=== PATIENT | male | born 1950 | race Caucasian/White ===

== ENCOUNTER 2018-01-08 05:48 | Emergency (ER) | payer OTHER ==
[~2018-01-08] VITALS: Ht 180.3 cm; Wt 113.4 kg
[~2018-01-08 05:48] MED LIST: AMARYL4 MG PO; ASPIRIN81 M2 PO; BENTYL 10 MG CA10 MG; BENTYL20 MG PO; CARDIZEM CD120 MG PO; CEFTIN500 MG PO; CIPROFLOXACIN500 M1 PO; CLEOCIN HCL150 MG PO; DEMEROL50 MG PO; FLAGYL500 MG PO; IMODIUM A-D1 MG/5 ML PO; METFORMIN HCL500 MG PO; NEXIUM40 MG PO; NICOTINE TRANSD14 M1; NORCO 5-325 TA1 EACH PO; OMEPRAZOLE; OMEPRAZOLE40 MG PO; POTASSIUM CITR15 MEQ PO; PRILOSEC40 MG PO; QUESTRAN PACKET4 GM; REQUIP 0.25 M0.25 MG PO; TESTOSTERONE; TORADOL 10 MG T10 MG PO; TRAMADOL 50 MG50 MG PO; ZOFRAN ODT4 M1 PO; ZOFRAN ODT4 MG PO; ZOMIG; ZPAK PO; [UNRECOGNIZED DRUG - OTHER]; [UNRECOGNIZED DRUG - OTHER]; [UNRECOGNIZED DRUG - OTHER] PO
[2018-01-08] MEDS ORDERED: LOPRESSOR50 (05:57)
[2018-01-08] MEDS ORDERED: LYRICA 75 MG CA75 MG (05:58)
[2018-01-08] MEDS ORDERED: KEFLEX500 M1 PO ×2 (06:20→06:39)
[2018-01-08] MEDS ORDERED: CENTANY30 GM TOP ×2 (06:20→06:39)
[2018-01-08] MEDS ORDERED: DIFLUCAN150 MG PO (06:21)
[2018-01-08 06:47] VITALS: BP 208/81
== END 2018-01-08 06:47 | disposition home or self-care (01) ==
LOC: M.ERS 05:48
DX: L30.9 Dermatitis, unspecified (principal); K21.9 Gastro-esophageal reflux disease without esophagitis; I10 Essential (primary) hypertension; Z88.5 Allergy status to narcotic agent; Z88.8 Allergy status to other drugs, medicaments and biological substances; Z87.891 Personal history of nicotine dependence

== ENCOUNTER → 2018-10-21 | Outpatient (CLI) | payer OTHER ==
[~2018-10-21] MED LIST changes: +CENTANY30 GM TOP; +DIFLUCAN150 MG PO; +KEFLEX500 M1 PO; +LOPRESSOR50; +LYRICA 75 MG CA75 MG
--- NOTE | 2018-10-21 18:26 | 2DMMODE ---
[place] [address] 2 D/M-MODE ECHOCARDIOGRAM Name: ROBERTO HUERTA Room: [facility]#: [id number] Admission: 10/21/18 Attend Phys: Tyree Valdes MD Discharge: Date of : 54 Date of Service: 10/21/18 1826 Report #: [id number] THIS REPORT FOR: //name// APPROVED REPORT Study performed: 10/21/2018 15:34:44 EXAM: Comprehensive 2D, Doppler, and color-flow Echocardiogram Patient Location: Out-Patient Status: routine BSA: 2.34 HR: 72 bpm BP: 130/60 mmHg Other Information Study Quality: Fair Indications Atrial Fibrillation 2D Dimensions IVSd: 11.06 (7-11mm) LVOT Diam: 20.11 (18-24mm) LVDd: 43.81 mm PWd: 11.92 (7-11mm) Ascending Ao: 28.91 (22-36mm) LVDs: 29.82 (25-40mm) Aortic Root: 30.52 mm Volumes Left Atrial Volume (Systole) LA ESV Index: 26.10 mL/m2 Aortic Valve AoV Peak Eamon.: 1.17 m/s AO Peak Gr.: 5.45 mmHg LVOT Max P.18 mmHg AO Mean Gr.: 2.89 mmHg LVOT Mean P.05 mmHg LVOT Max V: 1.02 m/s AO V2 VTI: 21.69 cm LVOT Mean V: 0.65 m/s ANNELIESE (VTI): 3.04 cm2 LVOT V1 VTI: 20.75 cm Mitral Valve E/A Ratio: 2.52 MV Decel. Time: 176.12 ms MV E Max Emaon.: 0.83 m/s MV PHT: 51.07 [place] [address] 2 D/M-MODE ECHOCARDIOGRAM Name: ROBERTO HUERTA Room: [facility]#: [id number] Admission: 10/21/18 Attend Phys: Tyree Valdes MD Discharge: Date of : 54 Date of Service: 10/21/18 1826 Report #: [id number] MVA (PHT): 4.31 cm2 TDI E/Lateral E': 6.38 E/Medial E': 9.22 Medial E' Eamon.: 0.09 m/s Lateral E' Eamon.: 0.13 m/s Pulmonary Valve PV Peak Eamon.: 1.01 m/s PV Peak Gr.: 4.09 mmHg Tricuspid Valve RAP Estimate: 5.00 mmHg TR Peak Gr.: 27.41 mmHg RVSP: 32.41 mmHg PA Pressure: 32.41 mmHg Left Ventricle The left ventricle is normal size. There is normal LV segmental wall motion. Mild concentric left ventricular hypertrophy. Left ventricular systolic function is normal. The left ventricular ejection fraction is within the normal range. LVEF is 50-55%. Grade III - reversible restrictive diastolic dysfunction. Right Ventricle The right ventricle is normal size. The right ventricular systolic function is normal. Atria Left atrium is borderline dilated. The right atrium size is normal. Aortic Valve The aortic valve is normal in structure. No aortic regurgitation is present. There is no aortic valvular stenosis. Mitral Valve The mitral valve is normal in structure. Mild mitral regurgitation. No evidence of mitral valve stenosis. Tricuspid Valve The tricuspid valve is normal in structure. Mild tricuspid regurgitation. Pulmonic Valve The pulmonary valve is normal in structure. There is no pulmonic [place] [address] 2 D/M-MODE ECHOCARDIOGRAM Name: ROBERTO HUERTA Room: [facility]#: [id number] Admission: 10/21/18 Attend Phys: Tyree Valdes MD Discharge: Date of : 54 Date of Service: 10/21/18 1826 Report #: [id number] Great Vessels The aortic root is normal in size. IVC is normal in size and collapses >50% with inspiration. Pericardium There is no pericardial effusion. <Conclusion> LVEF is 50-55%. There is normal LV segmental wall motion. Mild concentric left ventricular hypertrophy. Grade III - reversible restrictive diastolic dysfunction. Left atrium is borderline dilated. Mild mitral regurgitation. There is no aortic valvular stenosis. No aortic regurgitation is present. Mild tricuspid regurgitation. <ELECTRONICALLY SIGNED> By: Richar Matos MD, FACC 10/21/181825 25 25 Richar Matos MD, FACC /INF
== END ==
LOC: M.CRD 10-15 10:00
DX: I08.1 Rheumatic disorders of both mitral and tricuspid valves (principal); I48.91 Unspecified atrial fibrillation

== ENCOUNTER 2019-02-02 21:38 | Emergency (ER) | payer OTHER ==
[~2019-02-02] VITALS: Ht 180.3 cm; Wt 114.8 kg
[2019-02-02 22:21] LABS: ABSOLUTE BASOPHILS 0.1 thou/uL (0.0-0.2); ABSOLUTE EOSINOPHILS 0.2 thou/uL (0.0-0.7); ABSOLUTE LYMPHOCYTES 1.6 thou/uL (0.8-5.3); ABSOLUTE NEUTROPHILS 7.4 thou/uL (1.6-8.1); BASOPHILS 1.3 %; EOSINOPHILS 2.1 %; HEMATOCRIT 47.8 % (42.0-52.0); LYMPHOCYTES 15.4 %; MCH 33.8 pg (26.0-34.0); MCHC 33.5 g/dL (28.0-37.0); MCV 100.8 fL (80.0-100.0); MONOCYTES 9.6 %; MPV 8.8 fl. (7.2-11.1); NUCLEATED RBCS 0 /100WBC; PLATELET COUNT* 211 thou/uL (150-400); POLYS 71.6 %; RBC 4.75 mil/uL (4.50-6.00); RDW-CV 15.5 % (10.5-14.5); WBC 10.4 thou/uL (4.0-11.0)
[2019-02-02 22:30] LABS: PROTIME 10.6 Seconds (9.20-11.50)
[2019-02-02 22:41] LABS: ALBUMIN 3.2 g/dL (3.4-5.0); ALKALINE PHOSPHATASE 109 U/L (46-116); ANION GAP 7 mmol/L (7-16); BUN 18 mg/dL (7-18); CALCIUM 8.8 mg/dL (8.5-10.1); CHLORIDE 101 mmol/L (98-107); CO2 29 mmol/L (21-32); CREATININE 0.9 mg/dL (0.6-1.3); GLUCOSE 117 mg/dL (70-99); NT-PRO BRAIN NAT PEPTIDE 1008 pg/mL (<300); POTASSIUM 4.7 mmol/L (3.5-5.1); SGOT 18 U/L (15-37); SGPT 27 U/L (30-65); SODIUM 137 mmol/L (136-145); TOTAL BILIRUBIN 0.4 mg/dL (<0.1-1.0); TOTAL PROTEIN 7.2 g/dL (6.4-8.2); TROPONIN-I LEVEL <0.06 ng/mL (<0.06)
[2019-02-02 23:43] VITALS: BP 123/58
--- NOTE | 2019-02-04 10:02 | EKG ---
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: Karri MCCLOUD : 1950 Requested By: Ivana Jones Order Number: [id number] MD: Richar Matos Measurements Intervals [place] Rate: 101 P: VA: QRS: 93 QRSD: 101 T: 44 QT: 352 QTc: 457 Interpretive Statements Atrial fibrillation Right axis deviation Baseline wander in lead(s) II,aVF Compared to ECG 09/30/2017 07:24:03 Sinus rhythm no longer present Electronically Signed On 02-04-2019 10:02:17 CDT by Richar Matos [email or web address] <ELECTRONICALLY SIGNED> By: Richar Matos MD, FACC 02/04/19 1002 07 07 Richar Matos MD, [facility] /EPI
== END 2019-02-02 23:43 | disposition home or self-care (01) ==
LOC: M.ERS 21:38
PROVIDERS: Emergency Medicine
DX: S00.83XA Contusion of other part of head, initial encounter (principal); G43.909 Migraine, unspecified, not intractable, without status migrainosus; K21.9 Gastro-esophageal reflux disease without esophagitis; I10 Essential (primary) hypertension; I48.91 Unspecified atrial fibrillation; Z87.891 Personal history of nicotine dependence; Z88.5 Allergy status to narcotic agent; Z88.8 Allergy status to other drugs, medicaments and biological substances; W10.9XXA Fall (on) (from) unspecified stairs and steps, initial encounter; Y93.89 Activity, other specified; Y92.89 Other specified places as the place of occurrence of the external cause; Y99.8 Other external cause status

== ENCOUNTER 2019-06-04 13:04 | Inpatient (IN) | payer OTHER ==
[~2019-06-04] VITALS: Ht 180.3 cm; Wt 127.2 kg
[~2019-06-04 13:04] MED LIST changes: +DILTIAZEM HCL90 MG PO; +IPRAT-ALBUT 0.5-3 ML INH; +IPRATROPIUM BRO15 ML NASAL; +LEVAQUIN 500 M500 M1 PO; -LOPRESSOR50; +LOPRESSOR50 PO; -LYRICA 75 MG CA75 MG; +LYRICA 75 MG CA75 MG PO; +NEBULIZER MISCELL; +PREDNISONE50 MG PO; +VENTOLIN HFA 1818 GM INH
[2019-06-04 13:13] VITALS: BP 156/98
[2019-06-04 14:01] LABS: HEMATOCRIT 48.4 % (42.0-52.0); HEMOGLOBIN 16.3 gm/dL (14.0-18.0); MCH 35.3 pg (26.0-34.0); MCHC 33.6 g/dL (28.0-37.0); MPV 8.4 fl. (7.2-11.1); NUCLEATED RBCS 0 /100WBC; PLATELET COUNT* 264 thou/uL (150-400); RBC 4.61 mil/uL (4.50-6.00); RDW-CV 15.9 % (10.5-14.5); WBC 13.7 thou/uL (4.0-11.0)
[2019-06-04 14:05] LABS: URINE BILIRUBIN NEGATIVE (Negative); URINE BLOOD TRACE (Negative); URINE CLARITY CLEAR; URINE COLOR YELLOW; URINE GLUCOSE-RANDOM NEGATIVE (Negative); URINE KETONES TRACE (Negative); URINE LEUKOCYTES-REFLEX NEGATIVE (Negative); URINE NITRITE-REFLEX NEGATIVE (Negative); URINE PROTEIN TRACE (Negative)
[2019-06-04 14:10] LABS: ANION GAP 9 mmol/L (7-16); BUN 19 mg/dL (7-18); CHLORIDE 99 mmol/L (98-107); CO2 30 mmol/L (21-32); GLUCOSE 195 mg/dL (70-99); POTASSIUM 4.5 mmol/L (3.5-5.1); SODIUM 138 mmol/L (136-145)
[2019-06-04 14:18] LABS: ABSOLUTE MONOCYTES 0.4 thou/uL (0.0-1.2); ABSOLUTE NEUTROPHILS 12.3 thou/uL (1.6-8.1); PLATELET ESTIMATE ADEQUATE
[2019-06-04 14:22] LABS: ALBUMIN 3.4 g/dL (3.4-5.0); ALKALINE PHOSPHATASE 94 U/L (46-116); NT-PRO BRAIN NAT PEPTIDE 1180 pg/mL (<300); SGOT 20 U/L (15-37); SGPT 49 U/L (30-65); TOTAL BILIRUBIN 0.5 mg/dL (<0.1-1.0); TOTAL PROTEIN 7.6 g/dL (6.4-8.2); TROPONIN-I LEVEL <0.06 ng/mL (<0.06)
--- NOTE | 2019-06-04 14:53 | EKG ---
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: : 1950 Requested By: Laure Carrasquillo Order Number: [id number] MD: Jasiel Mendosa Measurements Intervals [place] Rate: 96 P: NM: QRS: 89 QRSD: 105 T: 38 QT: 371 QTc: 469 Interpretive Statements Atrial fibrillation Borderline right axis deviation Baseline wander in lead(s) II,III,aVF Compared to ECG 05/30/2019 16:25:08 No significant changes Electronically Signed On 06-04-2019 14:53:13 CDT by Jasiel Mendosa [email or web address] <ELECTRONICALLY SIGNED> By: Jasiel Mendosa MD, [facility] 06/04/19 1453 1403 140 Jasiel Mendosa MD, FACC /EPI
[2019-06-04 16:02] VITALS: BP 148/83
[2019-06-04 16:45] VITALS: BP 145/82
[2019-06-04] MEDS ORDERED: MUPIROCIN1 GM TOP (16:57)
[2019-06-04 20:00] VITALS: BP 151/80
[2019-06-05] VITALS: BP 141/92
[2019-06-05 04:00] VITALS: BP 157/103
--- NOTE | 2019-06-05 06:23 | NUR ---
ASSUMED PATIENT CARE AT 1900. PATIENT ALERT AND ORIENTED TIMES FOUR. IMITREX ORDER OBTAINED PER PATIENT REQUEST. CLIENT RELATIONSHIP CONSULTANT AND HOURLY ROUNDING COMPLETED CHARTED
[2019-06-05 08:20] VITALS: BP 171/97
--- NOTE | 2019-06-05 08:38 | NUR ---
Pt is A&O. Resides at home with his , dtr and 3 grandkids. Independent. Pt uses a cane at home for mobility. Pt wears home o2 continuously, provided through [facility] [phone]. Hx of HH, does not recall the name of the agency. No hx of SNF. Goal is home at dc, does not anticipate any dc needs. Following.
[2019-06-05 12:00] VITALS: BP 134/81
--- NOTE | 2019-06-05 12:49 | NUR ---
PT A/O. TELE TRACKING AFIB AND ALL VSS ON 2L. DENIES CP, SOA. PT DOES C/O ABD CHRONIC ABD PAIN-MEDICATED PER EMAR. EDUCATED ON SAFETY AND PLAN OF CARE. PLEASE SEE ASSESSMENT FOR ADDITIONAL INFORMATION. WILL CONT TO MONITOR. AT BEDSIDE REQUESTING STAFF ASSISTANCE FOR AMBULATION AND TOILETING. NURSING SUP AT BEDSIDE THIS AM TO INFORM PT AND THAT STAFF ARE NOT ABLE TO ASSIST WITH CARES, BUT ENCOURAGED TO BE SEEN IN EMERGENCY DEPT IF NEEDING NURSING ASSISTANCE. BOTH PT AND REFUSE TO BE SEEN IN ER- PT AND INFORMED OF RISKS.
--- NOTE | 2019-06-05 16:00 | NUR ---
ASSUMED CARE AFTER REPORT AT 1600. IN AGREEMENT WITH ASSESSMENT CHARTED BY ROBBIN RN. PATIENT ABLE TO COMMUNICATE NEEDS TO STAFF. CALL LIGHT WITHIN REACH. HOURLY ROUNDING FOR SAFETY AND PATIENT NEEDS.
[2019-06-05 16:42] VITALS: BP 122/71
[2019-06-05 19:40] VITALS: BP 156/79
[2019-06-06] VITALS: BP 138/77
[2019-06-06 04:00] VITALS: BP 168/103
[2019-06-06 04:17] LABS: ABSOLUTE BASOPHILS 0.1 thou/uL (0.0-0.2); ABSOLUTE EOSINOPHILS 0.3 thou/uL (0.0-0.7); ABSOLUTE LYMPHOCYTES 2.7 thou/uL (0.8-5.3); ABSOLUTE NEUTROPHILS 7.3 thou/uL (1.6-8.1); BASOPHILS 0.8 %; EOSINOPHILS 2.2 %; HEMATOCRIT 43.6 % (42.0-52.0); HEMOGLOBIN 14.6 gm/dL (14.0-18.0); LYMPHOCYTES 24.3 %; MCH 35.5 pg (26.0-34.0); MCHC 33.5 g/dL (28.0-37.0); MCV 106.2 fL (80.0-100.0); MONOCYTES 8.4 %; MPV 8.5 fl. (7.2-11.1); NUCLEATED RBCS 0 /100WBC; PLATELET COUNT* 199 thou/uL (150-400); POLYS 64.3 %; RBC 4.11 mil/uL (4.50-6.00); WBC 11.3 thou/uL (4.0-11.0)
[2019-06-06 04:31] LABS: CALCIUM 8.2 mg/dL (8.5-10.1); CREATININE 0.8 mg/dL (0.6-1.3); POTASSIUM 4.5 mmol/L (3.5-5.1)
[2019-06-06 04:40] VITALS: BP 158/77
--- NOTE | 2019-06-06 05:26 | NUR ---
PATIENT REMAINS STABLE THIS SHIFT AND PROGRESSING TOWARDS GOALS: VSS ON 2L O2 NC. PATIENT'S PAIN PARTIALLY MANAGED WITH RELAXATION TECHNIQUES AND ORAL MEDS PER MAR. PATIENT IS HOPEFUL TO BE DISCHARGED HOME TODAY.
[2019-06-06 07:40] VITALS: BP 155/86
--- NOTE | 2019-06-06 11:08 | CON ---
[address] [address] CONSULTATION Name: ANTONIO HUERTA Room: [address] IN .R.#: [id number] Admission: 06/04/19 Attend Phys: Mark Prasad MD Discharge: Date of : 54 Report #: [id number] THIS REPORT FOR: //name// CC: Mark Roberson DATE OF SERVICE: 06/05/2019 CONSULTATION: Infectious Diseases. HISTORY OF PRESENT ILLNESS: Antonio Huerta is a 69-year-old white male who comes to the hospital because of positive blood cultures. The patient was admitted in the Emergency Room 05/30 with cough, congestion and dyspnea. He was treated with Levaquin and steroids. The patient had 2 blood cultures done. He was called back because both cultures had Gram-positive cocci. Infectious Disease consultation was requested to assist with evaluation and management. PAST MEDICAL HISTORY: Significant for diabetes with hypertension, atrial fibrillation, congestive heart failure, low back pain, closed head injury, esophageal reflux. The patient was admitted earlier this year for abdominal pain and is found to have an incarcerated hernia. Has history of diverticulitis. He has been treated for histoplasmosis in the past. ALLERGIES: THE PATIENT HAS ALLERGY TO 6 NARCOTIC PAIN MEDICATIONS, but no antibiotic allergies. FAMILY HISTORY: Noncontributory. SOCIAL HISTORY: The patient is and lives with his . He smokes cigarettes. He is on oxygen at home and says he wears oxygen in house and then he goes out to the deck to smoke. His also smokes, but also only outside on the deck where there is no supplemental oxygen. He says the pack of cigarettes lasts a little bit more than a day. The patient is retired from the [employer]. There he had exposure to toxins, fumes, asbestos and dust. The patient denies significant alcohol or drugs. REVIEW OF SYSTEMS: The patient denies fevers, chills, sweats. The patient denies headache, sinus congestion, sore throat, trouble swallowing. The patient has cough, which has been productive of greenish sputum. He has increased dyspnea. Denies chest pain. No angina, syncope, palpitations. The patient denies nausea, vomiting, diarrhea, constipation. No urinary complaints. The patient has chronic low back pain and chronic abdominal pain. No pain in his extremities. PHYSICAL EXAMINATION: GENERAL: The patient appears sleepy. He said he was up [place] [address] CONSULTATION Name: ANTONIO HUERTA Room: [address]#: [id number] Admission: 06/04/19 Attend Phys: Mark Prasad MD Discharge: Date of : 54 Report #: [id number] However, he is arousable, alert, conversant, not in any distress. VITAL SIGNS: Show no fevers since the patient has been in the hospital. SKIN: The patient has no rash, lesion nor exanthem. No wounds. No areas of cellulitis. ENT: Negative. HEART: Sounds distant S1, S2. CHEST: Breath sounds are distant, but clear. ABDOMEN: Belly is obese, soft, not tender. EXTREMITIES: Unremarkable. LABORATORY DATA: White count is 13.7, hemoglobin 16.3 and platelets are normal. BUN and creatinine, electrolytes are normal. Glucose 195. Lactate is normal. BNP is somewhat elevated at 1300. The microbiology reports that 3 blood cultures were drawn on 05/30. One was negative, one had methicillin-resistant Staphylococcus epidermidis and third culture had methicillin-resistant Staphylococcus hominis, but with disparity in terms of susceptibility to clindamycin and tetracycline compared to the Staphylococcus epidermidis. 2 followup blood cultures were drawn on 06/04 and are negative so far. Chest x-ray shows chronic changes, but no acute infiltrates. IMPRESSION: Chronic obstructive pulmonary disease with exacerbation with probable bronchitis. I doubt the patient is bacteremic. At this time, I want to resume Levaquin for the bronchitis. We can continue the vancomycin for the blood cultures. Assuming that the followup blood cultures are negative, I recommend we discontinue the vancomycin and if the patient is otherwise stable, he could go home. It may be worthwhile to check a sputum culture and urinary antigens for the pulmonary infection. With history of diabetes, I will check a hemoglobin A1c. The patient and were counseled as to the benefits and strategies for smoking cessation, particularly with oxygen-dependent chronic obstructive pulmonary disease and fibrosis. The patient seemed somewhat receptive to the concept. I appreciate the opportunity of input in the care of this pleasant gentleman. I anticipate he will be going home the next day or so as I suspect that the positive blood cultures are probably false positives. Thank you for this consultation. <ELECTRONICALLY SIGNED> By: Jasiel Brown MD 06/06/19 1108 1119 [id number] Brown MD /nt
[2019-06-06 12:03] VITALS: BP 155/86
== END 2019-06-06 12:57 | disposition home or self-care (01) | DRG 197 ==
LOC: M.ERS 13:04 → M.2W 15:23 → M.TBA-ER 15:23 → M.2W 16:24
PROVIDERS: Internal Medicine Infectious Disease; Nurse Practitioner Family; ADMIT Internal Medicine
DX: J84.9 Interstitial pulmonary disease, unspecified (principal); I50.32 Chronic diastolic (congestive) heart failure; J96.11 Chronic respiratory failure with hypoxia; J44.1 Chronic obstructive pulmonary disease with (acute) exacerbation; G43.909 Migraine, unspecified, not intractable, without status migrainosus; G25.81 Restless legs syndrome; K21.9 Gastro-esophageal reflux disease without esophagitis; I11.0 Hypertensive heart disease with heart failure; E11.9 Type 2 diabetes mellitus without complications; F17.210 Nicotine dependence, cigarettes, uncomplicated; G89.29 Other chronic pain; I48.2 Chronic atrial fibrillation; J20.9 Acute bronchitis, unspecified; Z90.49 Acquired absence of other specified parts of digestive tract; Z88.6 Allergy status to analgesic agent; Z88.8 Allergy status to other drugs, medicaments and biological substances; Z87.828 Personal history of other (healed) physical injury and trauma; Z87.442 Personal history of urinary calculi

== ENCOUNTER → 2020-07-20 | Outpatient (CLI) | payer OTHER ==
[~2020-07-20] MED LIST changes: +MUPIROCIN1 GM TOP
== END ==
LOC: M.ULTRA 11:35
PROVIDERS: ATTEND Family Medicine
DX: K76.89 Other specified diseases of liver (principal); R31.21 Asymptomatic microscopic hematuria

== ENCOUNTER 2021-07-01 14:23 | Inpatient (IN) | payer OTHER ==
[~2021-07-01] VITALS: Ht 180.3 cm; Wt 95.7 kg
[2021-07-01 14:26] VITALS: BP 92/55
--- NOTE | 2021-07-01 14:41 | EKG ---
[place] [address] ELECTROCARDIOGRAM REPORT Name: ROBERTO HUERTA Room: [facility].#: [id number] Admission: Attend Phys: Discharge: Date of : 54 Date of Service: 07/01/21 1430 Report #: [id number] THIS REPORT FOR: //name// 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: : 1950 Requested By: Marcelino Rogers Order Number: [id number] MD: Jasiel Mendosa Measurements Intervals [place] Rate: 120 P: GA: QRS: 91 QRSD: 111 T: 46 QT: 329 QTc: 465 Interpretive Statements Atrial fibrillation Right axis deviation Low voltage, precordial leads Abnormal R-wave progression, early transition Artifact in lead(s) I,II,III,aVR,aVL,aVF Compared to ECG 06/04/2019 14:03:39 Low QRS voltage now present Electronically Signed On 07-01-2021 14:40:54 CDT by Jasiel Mendosa [email or web address] <ELECTRONICALLY SIGNED> By: Jasiel Mendosa MD, FACC 07/01/21 1440 1430 1430 Jasiel Mendosa MD, FAC /EPI
[2021-07-01 15:03] LABS: ABSOLUTE BASOPHILS 0.1 thou/uL (0.0-0.2); ABSOLUTE EOSINOPHILS 0.1 thou/uL (0.0-0.7); ABSOLUTE LYMPHOCYTES 1.1 thou/uL (0.8-5.3); ABSOLUTE MONOCYTES 1.6 thou/uL (0.0-1.2); ABSOLUTE NEUTROPHILS 13.1 thou/uL (1.6-8.1); BASOPHILS 0.3 %; EOSINOPHILS 0.4 %; HEMATOCRIT 35.9 % (42.0-52.0); HEMOGLOBIN 11.8 gm/dL (14.0-18.0); LYMPHOCYTES 7.2 %; MCH 33.7 pg (26.0-34.0); MCHC 32.9 g/dL (28.0-37.0); MCV 102.6 fL (80.0-100.0); MONOCYTES 9.9 %; MPV 8.6 fl. (7.2-11.1); NUCLEATED RBCS 0 /100WBC; PLATELET COUNT* 224 thou/uL (150-400); POLYS 82.2 %; RDW-CV 14.4 % (10.5-14.5)
[2021-07-01 15:08] LABS: CALCIUM 7.8 mg/dL (8.5-10.1); CREATININE 6.9 mg/dL (0.6-1.3)
--- NOTE | 2021-07-01 15:09 | NUR ---
b/p right arm /44 b/p left arm /
[2021-07-01 15:10] LABS: POTASSIUM 6.2 mmol/L (3.5-5.1)
[2021-07-01 15:12] LABS: ALBUMIN 3.2 g/dL (3.4-5.0); TOTAL BILIRUBIN 0.5 mg/dL (<0.1-1.0); TOTAL PROTEIN 6.7 g/dL (6.4-8.2)
[2021-07-01 19:29] VITALS: BP 104/59
[2021-07-01 22:55] VITALS: BP 100/46
[2021-07-02 05:21] VITALS: BP 101/62
--- NOTE | 2021-07-02 06:56 | NUR ---
ASSUMED PT CARE AT APPROX. 2250. BEDSIDE REPORT RECEIVED FROM JEAN BURTON. PT ADMITTED POST SURGERY FOR VENTRAL HERNIA REPAIR W/ MESH. PT IS A/OX4. PT IS TRACING AFIB ON THE MONITOR AND HAS A HX OF AFIB. HR IS CONTROLLED 80-90 BPM. PT IS ON 2LNC AT [facility]. PT HAS A MIDLINE ABDOMINAL MEPALEX DRESSING. DRESSING IS C/D/I. PT HAS A MEJIAS IN PLACE TO DRAIN. SEE I/O'S. PT C/O PAIN IN ABD. PT WAS GIVEN MORPHINE IN PACU ALONG W/ BENADRYL. PT TOLERATED MEDICATION. PT STATED, "I CAN TAKE MORPHINE IT JUST MAKES ME ITCH SOMETIMES AND THEY GIVE ME BENADRYL. I TOOK IT DOWNSTAIRS AND NO PROBLEMS." MD ETIENNE AWARE OF LISTED ALLERGY AND ORDERED LIST BE UPDATED. ALLERGY LIST UPDATED. MEDICATIONS ADMINISTERED PRESCRIBED. PT DENIED C/O. PT TOLERATED MEDICATION. PT IS CURRENTLY NPO. HOURLY ROUNDS COMPLETE CHARTED. ASSESSMENTS COMPLETED. PT CURRENTLY RESTING. WILL CONT. TO MONITOR.
[2021-07-02 08:25] VITALS: BP 101/62
[2021-07-02 12:41] VITALS: BP 101/56
[2021-07-02 15:53] VITALS: BP 108/52
--- NOTE | 2021-07-02 17:15 | NUR ---
PATIENT RESTING UP IN CHAIR. PATIENT IS UP WITH ASSIST OF 1 WITH GAIT BELT. PATIENT HAS HAD COMPLAINTS OF ABDOMINAL PAIN, TREATED PARTIALLY WITH MEDICATION. PATIENT IS TOLERATING CLEAR LIQUIDS. NO BOWEL MOVEMENT TODAY. MEJIAS CATHETER IN PLACE. PATIENT DENIES ANY NEEDS AT THIS TIME. CALL LIGHT WITHIN REACH.
[2021-07-02 20:00] VITALS: BP 82/46
[2021-07-02 23:00] VITALS: BP 87/43
[2021-07-03] VITALS (14 sets, daily range): BP systolic 91–180; BP diastolic 50–92
[2021-07-03 08:17] LABS: ALBUMIN 2.4 g/dL (3.4-5.0); CALCIUM 7.4 mg/dL (8.5-10.1); MAGNESIUM 1.4 mg/dL (1.8-2.4); POTASSIUM 5.7 mmol/L (3.5-5.1); TOTAL BILIRUBIN 0.3 mg/dL (<0.1-1.0); TOTAL PROTEIN 5.8 g/dL (6.4-8.2)
[2021-07-03 08:24] LABS: CREATININE 1.4 mg/dL (0.6-1.3)
[2021-07-03 09:06] LABS: HEMATOCRIT 33.1 % (42.0-52.0); MCH 34.5 pg (26.0-34.0); MCHC 33.2 g/dL (28.0-37.0); RBC 3.18 mil/uL (4.50-6.00); RDW-CV 14.4 % (10.5-14.5); WBC 5.3 thou/uL (4.0-11.0)
--- NOTE | 2021-07-03 20:08 | NUR ---
PATIENT RESTING IN BED. PATIENT IS UP WITH ASSIST. PATIENT HAS MIDLINE DRESSING C/D/I. PATIENT HAS COMPLAINTS OF ABDOMINAL PAIN, TREATED PARTIALLY WITH MEDICATION. PATIENT IN AFIB WITH TACHYCARDIA, DR ETIENNE AWARE AND CARDIZEM DRIP ORDERED. PATIENT HAD COMPLAINTS OF SHORTNESS OF AIR THIS EVENING, O2 SAT 95% ON 2L/NC, DR ETIENNE NOTIFIED. PATIENT HAS GOOD APPETITE. BOWEL MOVEMENT THIS AM. CALL LIGHT WITHIN REACH.
[2021-07-03 22:10] LABS: URINE BILIRUBIN NEGATIVE (Negative); URINE BLOOD 1+ (Negative); URINE CLARITY CLEAR; URINE COLOR STRAW; URINE GLUCOSE-RANDOM NEGATIVE (Negative); URINE KETONES NEGATIVE (Negative); URINE LEUKOCYTES-REFLEX NEGATIVE (Negative); URINE NITRITE-REFLEX NEGATIVE (Negative); URINE PROTEIN NEGATIVE (Negative); URINE UROBILINOGEN 0.2 E.U./dl (0.2-1.0)
[2021-07-03 22:32] LABS: CASTS None Seen /LPF (None Seen); SQUAMOUS NONE SEEN /LPF (0-3)
[2021-07-03 22:33] LABS: BACTERIA-REFLEX 1-9 Few /HPF (None Seen); CRYSTALS None Seen /LPF (None Seen); URINE RBC 3-10 Few /HPF (0-2); URINE WBC-REFLEX 0-5 Rare /HPF (0-5)
[2021-07-04 01:47] VITALS: BP 135/67
[2021-07-04 04:34] LABS: ABSOLUTE BASOPHILS 0.1 thou/uL (0.0-0.2); ABSOLUTE EOSINOPHILS 0.4 thou/uL (0.0-0.7); ABSOLUTE LYMPHOCYTES 1.5 thou/uL (0.8-5.3); ABSOLUTE NEUTROPHILS 5.8 thou/uL (1.6-8.1); BASOPHILS 0.8 %; EOSINOPHILS 4.2 %; HEMATOCRIT 33.6 % (42.0-52.0); HEMOGLOBIN 11.2 gm/dL (14.0-18.0); LYMPHOCYTES 16.7 %; MCH 34.2 pg (26.0-34.0); MCHC 33.3 g/dL (28.0-37.0); MCV 102.7 fL (80.0-100.0); MONOCYTES 11.5 %; MPV 8.8 fl. (7.2-11.1); NUCLEATED RBCS 0 /100WBC; PLATELET COUNT* 217 thou/uL (150-400); POLYS 66.8 %; RBC 3.27 mil/uL (4.50-6.00); RDW-CV 14.2 % (10.5-14.5); WBC 8.7 thou/uL (4.0-11.0)
[2021-07-04 05:00] LABS: ALBUMIN 2.5 g/dL (3.4-5.0); CALCIUM 7.6 mg/dL (8.5-10.1); POTASSIUM 5.5 mmol/L (3.5-5.1); TOTAL BILIRUBIN 0.2 mg/dL (<0.1-1.0); TOTAL PROTEIN 6.2 g/dL (6.4-8.2)
--- NOTE | 2021-07-04 05:57 | NUR ---
ASSUMED PT CARE AT APPROX. 1930. PT IS A/OX4. UPON ASSESSMENT PT HAD LABORED BREATHING W/ C/O SOA. MD ETIENNE CONTACTED AND ORDERED A STAT CHEST X-RAY, ONE TIME DOSE OF LASIX IVP, AND TO RESUME HOME BREATHING TX'S. AFTER INTERVENTIONS WERE COMPLETED PT'S RR DECREASED AND PT REPORTED "FEELING MUCH BETTER." PT IS TRACING AFIB/TACHYCARDIA ON MACHINE CLOTHING REPLACER. PT IS ON CARDIZEM GTT. PT IV ACCESS WAS NOT INFUSING AT TIME OF ASSIGNMENT. PT HAD NEW IV PLACED TO LFA. CARDIZEM GTT RESUMED PRESCRIBED. DURING THE NIGHT PTS HR WAS CONTROLLED AT 60-70BPM. PT C/O GENERALIZED ABDOMINAL PAIN. PT HAD VENTRAL HERNIA REPAIR W/ MESH ON 07/01/21. PT HAD BM YESTERDAY AND LAST NOC. PT HAS A MIDLINE ABDOMINAL MEPALEX DRESSING AND IS C/D/I. MEDICATIONS ADMINSTERED PRESCRIBED. PT REPORTED PARTIAL PAIN RELIEF. PT HAS ICE PACK PLACED TO MIDLINE ABDOMEN AND REPOSITIONS SELF TO SOCIAL SERVICE ASSISTANT IN PAIN RELIEF. PT CURRENTLY RESTING IN BED. FALL PRECAUTIONS IN PLACE FOR SAFETY. PT UP W/ ASSIST X1 TO BSC. HOURLY ROUNDS COMPLETE CHARTED. ASSESSMENTS COMPLETE. CALL LIGHT W/IN REACH. WILL CONT. TO MONITOR.
[2021-07-04 05:59] VITALS: BP 132/76
[2021-07-04 08:35] VITALS: BP 108/62
[2021-07-04 11:15] VITALS: BP 110/61
--- NOTE | 2021-07-04 11:46 | OP ---
[address] [address] OPERATIVE REPORT Name: ROBERTO HUERTA Room: [address] IN M.R.#: [id number] Admission: 07/01/21 Attend Phys: Vivian Ha Discharge: Date of : 54 Report #: [id number] THIS REPORT FOR: cc: Tito Damico MD,Tito Live,Bear Quintanilla III DO ~ cc: Tito Damico MD DATE OF SURGERY: 07/01/2021 PREOPERATIVE DIAGNOSIS: Recurrent strangulated incisional hernia. POSTOPERATIVE DIAGNOSIS: Recurrent strangulated incisional hernia. SURGEON: Bear Live MD. ROOF PROMENADE TILE SETTER: Júnior Copeland, PGY1. OPERATION PERFORMED: Incisional hernia repair with mesh and lysis of adhesions for 30 minutes. ANESTHESIA: General and local. ESTIMATED BLOOD LOSS: 20 mL. SPECIMENS: None. COMPLICATIONS: None. FINDINGS: Small bowel was inspected, well perfused without compromise. IMPLANT: An 8 [address] [address] mesh. INDICATIONS: The patient is a 71-year-old male who presented to the Emergency Department with acute onset of worsening abdominal pain and an umbilical bulge. On physical exam, he was found to have spreading erythema and warmth near his umbilicus and a previous incision. He had a history of multiple colon resections, a left adrenal resection and incisional hernias x 2. He was discussed of the risks and benefits of repair after we were unable to reduce the hernia. Risks were including but not limited to bleeding, infection, bowel injury, bowel resection, possible ostomy, and anesthesia complications. He understood these risks and he has decided to proceed with surgery. TECHNIQUE: After informed consent was obtained, the patient was brought to the operating room and placed in supine position. SCDs were on and running. Preoperative Zosyn was given. General anesthesia [place] [address] OPERATIVE REPORT Name: ROBERTO HUERTA Room: [address] IN [facility]#: [id number] Admission: 07/01/21 Attend Phys: Vivian Ha Discharge: Date of : 54 Report #: [id number]. A Marshall was placed under sterile conditions. The patient was prepped and draped in the usual sterile fashion. A surgical pause was held to confirm proper patient and procedure. A midline incision around his umbilicus, at a previous incision, was made with a 10 blade. Dissection was carried through the subcutaneous tissue using cautery. The hernia sac was identified and blunt dissection was used to separate the hernia sac from the surrounding subcutaneous fat. The umbilical skin was from the hernia sac carefully with a combination of blunt dissection and Metzenbaum scissors. Once the hernia sac was completely isolated, the dissection was used to carry down the dissection to the fascial defect. The fascial defect was quite small relative to the hernia sac contents and the hernia sac itself was under enough pressure that we were unable to tent up the sac to open it and relieve some of the pressure. So therefore, we divided the midline subcutaneous fat inferior to the fascial defect until we were down to the linea alba. We scored the linea alba about 1 cm inferior to the fascial defect and bluntly entered the peritoneum with a finger. Through this separate fascial defect, I was able to enter into the peritoneal cavity and out through the hernia defect. By doing this, I was able to take down the fascial bridge using cautery with care to protect the hernia contents. Once this fascial defect was extended and opened larger, we were able to circumferentially dissect the hernia sac free from the fascial edge. The hernia sac was removed from the small bowel. The small bowel was able to be reduced. We then performed an adhesiolysis circumferentially around the fascial defect to allow for mesh insertion. This was done with a combination of blunt dissection and careful sharp dissection using Metzenbaum scissors. There was small bowel to small bowel and small bowel to peritoneum adhesions. Once these were adequately taken down to allow for mesh insertion, we selected an 8 cm [place] Ventralex ST mesh. It was hydrated and inserted into the abdomen. The fascial defect measured 4 x 4 cm transverse and 5 cm superior to inferior. We then used [address] 4-point tacking sutures of the mesh to the memory ring of the mesh. Once this was complete, we placed 0 Prolene U stitches in between all of these for a total of 8 sutures to secure the mesh. These were held up and adequately circumferentially secured the mesh. We then tied all of them down. The fascia was then closed over the mesh with some incorporation of the mesh into the fascial closure using interrupted stitches of 0 Prolene. The subcutaneous tissue was then closed using 3-0 Vicryl. Skin was closed using a skin stapler. A 0.25% Marcaine was injected. The wound was cleansed and dressed with a silver impregnated Mepilex. The patient was emerged from anesthesia, extubated, and transferred to the PACU in stable condition. The Marshall will stay in place. <ELECTRONICALLY SIGNED> By: Bear Live III, DO 07/04/21 1146 51 [id number] Live III, DO /nt
--- NOTE | 2021-07-04 15:21 | NUR ---
Pt is A&O. Resides at home with . Independent. Pt has a cane that he can use for mobility. Pt has home o2 through [employer]. Hx of HH. No hx of SNF. Pt had surgery on 07/01 for hernia repair. Cardiology following, Pt on cardizem gtt. Goal is home at dc, CM following for dc needs. ?HH. Anticipate dc in a few days.
[2021-07-04 16:00] VITALS: BP 102/66
--- NOTE | 2021-07-04 18:26 | NUR ---
PT A&Ox4. VITALS STABLE. 3LO2. UP WITH 1. WORKED WELL WITH THERAPY AND WALKED HALLS. NORCO GIVEN FOR ABD PAIN. AFIB ON MONITOR. WILL CONTINUE TO MONITOR.
[2021-07-04 20:00] VITALS: BP 139/69
[2021-07-05] VITALS: BP 146/77
--- NOTE | 2021-07-05 02:31 | NUR ---
ASSUMED PT CARE AT 1930. ASSESSMENT COMPLETED CHARTED. ABLE TO MAKE NEEDS KNOWN. UP WITH SBA TO BATHROOM. C/O PAIN AND GAVE PRN MEDS PER EMAR. AROUND MIDNIGHT, AFTER USING RESTOOM, PT WAS STATING HE WAS MORE SHORT OF BREATH. COULD HEAR WHEEZING AND HAD JUST GIVEN HIM A BREATHING TX 3 HOURS AGO AND COULDNT GIVE ANOTHER. NOTIFIED DR AND NEW ORDERS GIVEN. PT NOW IS RESTING IN BED, STATES HE FEELS BETTER. WILL CONTINUE TO MONITOR.
[2021-07-05 04:00] VITALS: BP 136/76
[2021-07-05 05:45] LABS: ABSOLUTE BASOPHILS 0.1 thou/uL (0.0-0.2); ABSOLUTE EOSINOPHILS 0.2 thou/uL (0.0-0.7); ABSOLUTE MONOCYTES 1.1 thou/uL (0.0-1.2); ABSOLUTE NEUTROPHILS 6.6 thou/uL (1.6-8.1); BASOPHILS 0.7 %; EOSINOPHILS 2.4 %; HEMATOCRIT 35.7 % (42.0-52.0); HEMOGLOBIN 11.9 gm/dL (14.0-18.0); LYMPHOCYTES 20.1 %; MCH 34.3 pg (26.0-34.0); MCHC 33.4 g/dL (28.0-37.0); MCV 102.6 fL (80.0-100.0); MONOCYTES 10.8 %; MPV 8.4 fl. (7.2-11.1); NUCLEATED RBCS 0 /100WBC; PLATELET COUNT* 227 thou/uL (150-400); RBC 3.48 mil/uL (4.50-6.00); RDW-CV 14.2 % (10.5-14.5)
[2021-07-05 06:02] LABS: ALBUMIN 2.7 g/dL (3.4-5.0); CALCIUM 8.1 mg/dL (8.5-10.1); CREATININE 0.9 mg/dL (0.6-1.3); PHOSPHORUS* 3.5 mg/dL (2.5-4.9); POTASSIUM 4.2 mmol/L (3.5-5.1); TOTAL BILIRUBIN 0.3 mg/dL (<0.1-1.0); TOTAL PROTEIN 6.6 g/dL (6.4-8.2)
[2021-07-05 06:09] LABS: MAGNESIUM 0.9 mg/dL (1.8-2.4)
[2021-07-05 08:00] VITALS: BP 149/84
[2021-07-05] MEDS ORDERED: CARDIZEM CD360 MG PO (08:55)
[2021-07-05] MEDS ORDERED: PREDNISONE 10 M10 MG PO (08:55)
[2021-07-05] MEDS ORDERED: Nicoderm 21MG/24HR P TRANSDERM (08:55)
--- NOTE | 2021-07-05 11:35 | NUR ---
CHANGE OF SHIFT REPORT GIVEN PATIENT SEEN AT BEDSIDE, IN BED ASLEEP ASSUMED PATIENT CARE
[2021-07-05 12:39] VITALS: BP 157/88
[2021-07-05 12:54] VITALS: BP 157/88
--- NOTE | 2021-07-05 15:56 | NUR ---
Pt discharging home today. WC van arranged through [facility], Pt did not have a ride home, does not drive and dtr is at work until later tonight. Pt needing o2, already has set up at home.
--- NOTE | 2021-07-05 16:05 | NUR ---
PATIENT DISCHARGED TO HOME IV AND HEART MONITOR REMOVED PERSOANL BELONGINGS RETURNED DC INSTRUCTIONS GIVEN, ACKNOWLEDGED, COPIES GIVEN PATIENT TRANSPORTED BY AMBULANCE VIA GOOD CONDITION TO HOME
== END 2021-07-05 15:59 | disposition home or self-care (01) | DRG 853 ==
LOC: M.ERS 14:23 → M.TBA-ER 16:40 → M.2W 16:40
PROVIDERS: Family Medicine; Internal Medicine; Student in an Organized Health Care Education/Training Program; Surgery; ADMIT Internal Medicine; ATTEND Internal Medicine
PROC: 0WUF0JZ Supplement Abdominal Wall with Synthetic Substitute, Open Approach (ICD-10-PCS; principal; 2021-07-01)
PROC: 0DNW0ZZ Release Peritoneum, Open Approach (ICD-10-PCS; principal; 2021-07-01)
DX: A41.9 Sepsis, unspecified organism (principal); N17.0 Acute kidney failure with tubular necrosis; K43.0 Incisional hernia with obstruction, without gangrene; I50.32 Chronic diastolic (congestive) heart failure; I48.20 Chronic atrial fibrillation, unspecified; L03.90 Cellulitis, unspecified; Z20.822 Contact with and (suspected) exposure to COVID-19; G43.909 Migraine, unspecified, not intractable, without status migrainosus; G25.81 Restless legs syndrome; K21.9 Gastro-esophageal reflux disease without esophagitis; E11.9 Type 2 diabetes mellitus without complications; E87.5 Hyperkalemia; F17.210 Nicotine dependence, cigarettes, uncomplicated; K22.2 Esophageal obstruction; I11.0 Hypertensive heart disease with heart failure; E86.0 Dehydration; D72.829 Elevated white blood cell count, unspecified; Z87.442 Personal history of urinary calculi; Z88.6 Allergy status to analgesic agent; Z88.8 Allergy status to other drugs, medicaments and biological substances

== ENCOUNTER → 2021-09-20 | Outpatient (CLI) | payer OTHER ==
[~2021-09-20] MED LIST changes: +ASA81BEC PO; +CARDIZEM CD360 MG PO; +DICYCLOMINE HCL20 MG PO; +DILTIAZEM ER180 M2 PO; +FLEXERIL PO; +IMITREX100 MG PO; +LIPITOR10 MG PO; +METOPROLOL TART75 MG PO; +NEURONTIN 300M300 M2 PO; +Nicoderm 21MG/24HR P TRANSDERM; +PREDNISONE 10 M10 MG PO; +PROMETHAZINE12.5 M4 PO; +ZESTRIL2.5 MG PO
== END ==
LOC: M.PC 09:55
PROVIDERS: ATTEND Anesthesiology Pain Medicine
DX: G89.29 Other chronic pain (principal); M47.812 Spondylosis without myelopathy or radiculopathy, cervical region; M25.78 Osteophyte, vertebrae; K76.89 Other specified diseases of liver; R16.0 Hepatomegaly, not elsewhere classified; K42.9 Umbilical hernia without obstruction or gangrene; N20.0 Calculus of kidney; G43.909 Migraine, unspecified, not intractable, without status migrainosus; G25.81 Restless legs syndrome; K21.9 Gastro-esophageal reflux disease without esophagitis; K57.30 Diverticulosis of large intestine without perforation or abscess without bleeding; I11.0 Hypertensive heart disease with heart failure; I50.32 Chronic diastolic (congestive) heart failure; M51.26 Other intervertebral disc displacement, lumbar region; I48.91 Unspecified atrial fibrillation; E11.9 Type 2 diabetes mellitus without complications; Z79.899 Other long term (current) drug therapy; Z79.84 Long term (current) use of oral hypoglycemic drugs; Z88.8 Allergy status to other drugs, medicaments and biological substances

== ENCOUNTER → 2021-10-13 | Outpatient (CLI) | payer OTHER | LOC: M.PC 11:10 | PROVIDERS: ATTEND Anesthesiology Pain Medicine | DX: K76.89 Other specified diseases of liver (principal); K43.9 Ventral hernia without obstruction or gangrene; K40.20 Bilateral inguinal hernia, without obstruction or gangrene, not specified as recurrent; M47.812 Spondylosis without myelopathy or radiculopathy, cervical region; M25.78 Osteophyte, vertebrae; R16.0 Hepatomegaly, not elsewhere classified; N20.0 Calculus of kidney; K21.9 Gastro-esophageal reflux disease without esophagitis; K57.30 Diverticulosis of large intestine without perforation or abscess without bleeding; I11.0 Hypertensive heart disease with heart failure; I50.32 Chronic diastolic (congestive) heart failure; I36.1 Nonrheumatic tricuspid (valve) insufficiency; I48.0 Paroxysmal atrial fibrillation; E11.9 Type 2 diabetes mellitus without complications; I48.91 Unspecified atrial fibrillation; Z79.82 Long term (current) use of aspirin; Z88.8 Allergy status to other drugs, medicaments and biological substances; Z79.84 Long term (current) use of oral hypoglycemic drugs; Z79.899 Other long term (current) drug therapy ==

== ENCOUNTER → 2021-11-10 | Outpatient (CLI) | payer OTHER | LOC: M.PC 11:00 | PROVIDERS: ATTEND Anesthesiology Pain Medicine | DX: G89.29 Other chronic pain (principal); R10.9 Unspecified abdominal pain; G43.909 Migraine, unspecified, not intractable, without status migrainosus; K21.9 Gastro-esophageal reflux disease without esophagitis; E11.9 Type 2 diabetes mellitus without complications; G25.81 Restless legs syndrome; K57.90 Diverticulosis of intestine, part unspecified, without perforation or abscess without bleeding; I11.0 Hypertensive heart disease with heart failure; I50.32 Chronic diastolic (congestive) heart failure; N20.0 Calculus of kidney; M47.816 Spondylosis without myelopathy or radiculopathy, lumbar region; I48.91 Unspecified atrial fibrillation; Z79.84 Long term (current) use of oral hypoglycemic drugs; Z79.899 Other long term (current) drug therapy; Z79.82 Long term (current) use of aspirin ==

== ENCOUNTER → 2021-12-08 | Outpatient (CLI) | payer OTHER | LOC: M.PC 08:41 | PROVIDERS: ATTEND Anesthesiology Pain Medicine | DX: G89.29 Other chronic pain (principal); K22.2 Esophageal obstruction; G43.909 Migraine, unspecified, not intractable, without status migrainosus; G25.81 Restless legs syndrome; K21.9 Gastro-esophageal reflux disease without esophagitis; K57.92 Diverticulitis of intestine, part unspecified, without perforation or abscess without bleeding; I11.0 Hypertensive heart disease with heart failure; I50.32 Chronic diastolic (congestive) heart failure; N20.0 Calculus of kidney; M51.26 Other intervertebral disc displacement, lumbar region; I48.20 Chronic atrial fibrillation, unspecified; E11.9 Type 2 diabetes mellitus without complications; Z88.8 Allergy status to other drugs, medicaments and biological substances; Z79.82 Long term (current) use of aspirin; Z79.84 Long term (current) use of oral hypoglycemic drugs; Z79.899 Other long term (current) drug therapy ==